=== PATIENT | male | born 1980 | race Caucasian/White ===

== ENCOUNTER 2016-07-07 11:42 | Emergency (ER) | payer SELFPAY | END 2016-07-07 17:44 | disposition short-term general hospital (02) | LOC: ER 11:42 | DX: T23.002A Burn of unspecified degree of left hand, unspecified site, initial encounter (principal); T23.001A Burn of unspecified degree of right hand, unspecified site, initial encounter; X12.XXXA Contact with other hot fluids, initial encounter; F19.129 Other psychoactive substance abuse with intoxication, unspecified; F41.9 Anxiety disorder, unspecified; R25.2 Cramp and spasm; R61 Generalized hyperhidrosis; R42 Dizziness and giddiness; M79.604 Pain in right leg; M79.605 Pain in left leg ==